=== PATIENT | male | born 1985 | race African-American/Black ===

== ENCOUNTER 2016-09-26 13:12 | Emergency (ER) | payer OTHER ==
[~2016-09-26] VITALS: Ht 170.2 cm; Wt 80.0 kg
[2016-09-26 13:16] VITALS: BP 121/68; PULSE 87; RESP 17; TEMP 99; O2SAT 99
[2016-09-26] MEDS ORDERED: AMLO5 PO ×2 (13:25→17:04)
[2016-09-26] MEDS ORDERED: SODIUM CHLORIDE 0.9% FLUSH 10 ML FLUSH IVF PRN (13:45)
[2016-09-26] MEDS ORDERED: SODIUM CHLOR 0.9% 1000 ML INJ 1,000 ML IV ONE (13:45)
[2016-09-26] MEDS ORDERED: NITROGLYCERIN 2% OINT 1 GM PACKET TOP ONE (13:45)
--- NOTE | 2016-09-26 13:57 | RADRPT ---
EXAM DATE/TIME: 09/26/2016 13:45 [place] COMPARISON: No previous studies available for comparison. INDICATIONS : Chest pain. MEDICAL HISTORY : None. SURGICAL HISTORY : None. ENCOUNTER: Initial ACUITY: 1 day PAIN SCORE: 7/10 LOCATION: Left upper chest FINDINGS: A single view of the chest demonstrates the lungs to be symmetrically aerated without evidence of mas s, infiltrate or effusion. The cardiomediastinal contours are unremarkable. Osseous structures are intact. CONCLUSION: Normal examination. Joseph Diaz MD on September 26, 2016 at 13:55 Board Certified Radiologist. This report was verified electronically.
[2016-09-26 13:59] VITALS: BP 128/71; PULSE 78; RESP 20; O2SAT 99
[2016-09-26 14:14] LABS: AUTOMATED NEUTROPHIL # 7.2 TH/MM3 (1.8-7.7); BASOPHIL % 0.5 % (0.0-2.0); EOSINOPHIL % 0.2 % (0.0-4.0); HEMATOCRIT 39.5 % (39.0-51.0); HEMO FLAGS DIFF FINAL; LYMPH % 11.2 % (9.0-44.0); MEAN CELL VOLUME 82.3 FL (80.0-100.0); MEAN CORPUSCULAR HEMOGLOBIN 28.5 PG (27.0-34.0); MEAN CORPUSCULAR HGB CONC 34.6 % (32.0-36.0); MONO % 4.7 % (0.0-8.0); NEUT % 83.4 % (16.0-70.0); PLATELET COUNT 218 TH/MM3 (150-450); RED CELL DISTRIBUTION WIDTH 14.3 % (11.6-17.2); WHITE BLOOD COUNT 8.7 TH/MM3 (4.0-11.0)
[2016-09-26 14:25] LABS: APTT (PATIENT) 23.1 SEC (24.3-30.1); PROTHROMBIN TIME - PATIENT 10.7 SEC (9.8-11.6)
[2016-09-26 14:50] VITALS: BP 128/71; PULSE 78; RESP 20; O2SAT 99
[2016-09-26 15:07] LABS: ALKALINE PHOSPHATASE 64 U/L (45-117); ALT (GPT) 44 U/L (12-78); ANION GAP 6 MEQ/L (5-15); AST (GOT) 47 U/L (15-37); BICARBONATE 26.1 MEQ/L (21.0-32.0); BLOOD UREA NITROGEN 16 MG/DL (7-18); CHLORIDE 109 MEQ/L (98-107); GLOMERULAR FILTRATION RATE 106 ML/MIN (>89); MAGNESIUM 1.9 MG/DL (1.5-2.5); SODIUM (NA) 141 MEQ/L (136-145); TOTAL BILIRUBIN ADULT 0.8 MG/DL (0.2-1.0)
[2016-09-26 15:08] LABS: POTASSIUM 5.8 MEQ/L (3.5-5.1)
--- NOTE | 2016-09-26 15:25 | PD ---
HPI Chief Complaint: Chest Pain Time Seen by Provider: 13:22 Travel History International Travel<30 days: No Contact w/Intl Traveler<30days: No Traveled to known affect area: No History of Present Illness HPI Set 30-year-old man who presents to the emergency department complaining of sharp left-sided chest pain. He apparently was under arrest. Along with this chest pain surgeries shortness of breath, and some shakes. He reports that he' s had a history of chest pain on and off for the past 4 years. He was seen at the hospital in [place] just recently and had a heart catheterization about a month ago where he was diagnosed with "heart spasms". Patient reports he has not taken his Norvasc in 3 days and he thinks it may have caught up with him. He also has a history of asthma and hypertension. Did not have any stents or anything placed when he was the month ago. History Past Medical History Narrative Medical Asthma Hypertension Out of Norvasc Tetanus Vaccination: Unknown Influenza Vaccination: No Social History Alcohol Use: Yes (OCC) Tobacco Use: No Allergies-Medications (Allergen,Severity, Reaction): Coded Allergies: Penicillin (Verified Allergy, Severe, Anaphylaxis, 09/26/16) Reported Meds & Prescriptions Reported Meds & Active Scripts Active Reported Norvasc (Amlodipine Besylate) 5 Mg Tab 5 Mg PO DAILY Review of Systems Except as stated in HPI: all other systems reviewed are Neg Physical Exam Narrative GENERAL: Well-appearing 30-year-old man, no acute distress. SKIN: Focused skin assessment warm/dry. HEAD: Atraumatic. Normocephalic. CARDIOVASCULAR: Regular rate and rhythm. No murmur appreciated. RESPIRATORY: No accessory muscle use. Clear to auscultation. Breath sounds equal bilaterally. GASTROINTESTINAL: Abdomen soft, non-tender, nondistended. Hepatic and splenic margins not palpable. MUSCULOSKELETAL: No obvious deformities. No edema. NEUROLOGICAL: Awake and alert. No obvious cranial nerve deficits. Motor grossly within normal limits. Normal speech. PSYCHIATRIC: Appropriate mood and affect; insight and judgment normal. Data Data Last Documented VS Vital Signs Date Time Temp Pulse Resp B/P Pulse Ox O2 Delivery O2 Flow Rate FiO2 09/26/16 14:50 78 20 128/71 99 Room Air 09/26/16 13:16 99.0 Orders Electrocardiogram (09/26/16 ) Complete Blood Count With Diff (09/26/16 13:38) Comprehensive Metabolic Panel (09/26/16 13:38) Magnesium (Mg) (09/26/16 13:38) Prothrombin Time / Inr (Pt) (09/26/16 13:38) Act Partial Throm Time (Ptt) (09/26/16 13:38) Troponin I (09/26/16 13:38) Chest, Single Ap (09/26/16 13:38) Ecg Monitoring (09/26/16 13:38) Bilateral Bp Monitoring (09/26/16 13:38) Iv Access Insert/Monitor (09/26/16 13:38) Oximetry (09/26/16 13:38) Oxygen Administration (09/26/16 13:38) Nitroglycerin 2% Oint (Nitroglycerin 2% (09/26/16 13:45) Sodium Chloride 0.9% Flush (Ns Flush) (09/26/16 13:45) Sodium Chlor 0.9% 1000 Ml Inj (Ns 1000 M (09/26/16 13:45) Troponin I (09/26/16 16:30) Labs Laboratory Tests Test 09/26/16 09/26/16 13:50 16:20 White Blood Count 8.7 TH/MM3 Red Blood Count 4.80 MIL/MM3 Hemoglobin 13.7 GM/DL Hematocrit 39.5 % Mean Corpuscular Volume 82.3 FL Mean Corpuscular Hemoglobin 28.5 PG Mean Corpuscular Hemoglobin 34.6 % Concent Red Cell Distribution Width 14.3 % Platelet Count 218 TH/MM3 Mean Platelet Volume 9.1 FL Neutrophils (%) (Auto) 83.4 % Lymphocytes (%) (Auto) 11.2 % Monocytes (%) (Auto) 4.7 % Eosinophils (%) (Auto) 0.2 % Basophils (%) (Auto) 0.5 % Neutrophils # (Auto) 7.2 TH/MM3 Lymphocytes # (Auto) 1.0 TH/MM3 Monocytes # (Auto) 0.4 TH/MM3 Eosinophils # (Auto) 0.0 TH/MM3 Basophils # (Auto) 0.0 TH/MM3 CBC Comment DIFF FINAL Differential Comment Prothrombin Time 10.7 SEC Prothromb Time International 1.0 RATIO Ratio Activated Partial 23.1 SEC Thromboplast Time Sodium Level 141 MEQ/L Potassium Level 5.8 MEQ/L Chloride Level 109 MEQ/L Carbon Dioxide Level 26.1 MEQ/L Anion Gap 6 MEQ/L Blood Urea Nitrogen 16 MG/DL Creatinine 0.99 MG/DL Estimat Glomerular Filtration 106 ML/MIN Rate Random Glucose 99 MG/DL Calcium Level 8.9 MG/DL Magnesium Level 1.9 MG/DL Total Bilirubin 0.8 MG/DL Aspartate Amino Transf 47 U/L (AST/SGOT) Alanine Aminotransferase 44 U/L (ALT/SGPT) Alkaline Phosphatase 64 U/L Troponin I LESS THAN 0.02 LESS THAN 0.02 NG/ML NG/ML Total Protein 7.3 GM/DL Albumin 3.7 GM/DL [facility] Medical Decision Making Medical Screen Exam Complete: Yes Emergency Medical Condition: Yes Interpretation(s) My review of EKG: Normal sinus rhythm at a rate of 72, normal axis, normal intervals, extensive T-wave inversions in inferolateral leads, ST elevations in anterior precordial leads, suggestive of early report LVH, difficult to completely exclude ischemia. LABS: CBC unremarkable CMP is unremarkable, mildly elevated potassium. Troponin negative 2 Coags unremarkable Chest x-ray: Normal examination. Differential Diagnosis ACS, anxiety, Prinzmetal's angina, pericarditis, other Narrative Course Medical decision making INITIAL: This a 30 year-old woman presents emergent department complaining of chest pain after being arrested. He has not been taking his Norvasc. He recent heart catheterization which was diagnosed with "heart spasms". He also states he was taken emergently to the catheter lab. This is easy to see a wide based on his EKG shows an anterior precordial ST elevations. He says he was diagnosed with heart spasms which would probably suggest vasospastic angina. He endorses recent marijuana use but no cocaine or methamphetamine use. We'll try to get a copy of his old EKG, and old records, we'll check troponin, labs. We'll get repeat troponin 3 hours. Likely will be a medically clear for law enforcement. FINAL: We obtained records from [facility]. He's had multiple previous EKGs. Reviewing EKG from August 01, 10:23 AM, current EKGs are unchanged from his previous. Also reviewed heart catheter that was done on August 01 1:19 AM, reveals no significant epicardial coronary artery disease of there is evidence of acute coronary vasospasm of the left circumflex resolved. Normal EF. This is likely consistent with vasospastic angina. Will keep patient on his calcium channel dragan. Continue current medications. Diagnosis Primary Impression: Chest pain Additional Impression: Vasospastic angina Additional Instructions: Continue Norvasc as previously prescribed. Follow-up with your primary doctor in the next 3-5 days. Return to the emergency department for any new or worsening symptoms. Med/Other Pt SpecificInfo: Prescription(s) given Scripts Amlodipine (Norvasc)5 Mg Tab5 Mg PO DAILY #30 TAB Ref 0 Prov:Joseph Araiza MD 09/26/16 Disposition: 01 DISCHARGE HOME Condition: Stable Joseph Araiza MD Sep 26, 2016 15:24
[2016-09-26] MEDS ORDERED: amLODIPine BESYLATE 5 MG TAB PO ONE (17:15)
[2016-09-26 17:19] VITALS: BP 126/75; PULSE 71; RESP 20; O2SAT 98
--- NOTE | 2016-09-26 22:40 | EKG ---
Date Performed: 09/26/2016 Time Performed: 14:06:52 PTAGE: 30 years EKG: Sinus rhythm LEFT VENTRICULAR HYPERTROPHY AND ST-T CHANGE ABNORMAL ECG NO PREVIOUS TRACING DOCTOR: Johnnie Kaur Interpretating Date/Time 09/26/2016 22:39:46
--- NOTE | 2016-09-26 22:43 | EKG ---
Date Performed: 09/26/2016 Time Performed: 13:23:02 PTAGE: 30 years EKG: Sinus rhythm LEFT VENTRICULAR HYPERTROPHY AND ST-T CHANGE ABNORMAL ECG NO PREVIOUS TRACING DOCTOR: Johnnie Kaur Interpretating Date/Time 09/26/2016 22:41:07
== END 2016-09-26 17:45 | disposition home or self-care (01) ==
LOC: NEPD 13:12
DX: R07.89 Other chest pain (principal); I20.8 Other forms of angina pectoris; R06.02 Shortness of breath; R94.31 Abnormal electrocardiogram [ECG] [EKG]; I10 Essential (primary) hypertension; Z87.09 Personal history of other diseases of the respiratory system
CPT/HCPCS: 71010; 80053; 83735; 84484; 85025; 85610; 85730; 93005; 99285; J7030